=== PATIENT | female | born 1975 | race American Indian/Alaskan Native ===

== ENCOUNTER 2019-06-12 11:55 | Emergency (ER) | payer BC ==
[2019-06-12 12:04] VITALS: BP 136/95
--- NOTE | 2019-06-12 12:05 | Event Note ---
ED Screening Note Date of service: 06/12/19 Time: 12:02 ED Screening Note: This is a 43 y.o. F. that presents to the ER with lower abdominal pain for 2 months. + LLQ pain, n/v, and constipation Patient reports pain as throbbing pain on LLQ worse with movement. LMP 05/29/2019 This initial assessment/diagnostic orders/clinical plan/treatment(s) is/are subject to change based on patients health status, clinical progression and re- assessment by fellow clinical providers in the ED. Further treatment and workup at subsequent clinical providers discretion. Patient/guardian urged not to elope from the ED as their condition may be serious if not clinically assessed and managed. Initial orders include: Labs and CT of abdomen pelvis
[2019-06-12 12:46] LABS: Bilirubin,Urine NEG (Negative); Blood,Urine NEG (Negative); Color,Urine Straw (Yellow); Protein,Urine <15 mg/dL mg/dL (Negative); Urobilinogen,Urine < 2.0 mg/dL (<2.0); WBC,Urine < 1.0 /HPF (0.0-6.0)
[2019-06-12 13:15] LABS: Basophils % (Auto) 0.6 % (0.0-1.8); Eosinophils # (Auto) 0.1 K/mm3 (0.0-0.4); Eosinophils % (Auto) 1.4 % (0.0-4.3); Hematocrit 36.4 % (30.3-42.9); Hemoglobin 11.7 gm/dl (10.1-14.3); Lymphocytes % (Auto) 20.5 % (13.4-35.0); Mean Corpuscular HGB Conc 32 % (30-34); Mean Corpuscular Volume 84 fl (79-97); Monocytes # (Auto) 0.4 K/mm3 (0.0-0.8); Monocytes % (Auto) 7.8 % (0.0-7.3); Platelet Count 309 K/mm3 (140-440); Red Blood Count 4.36 M/mm3 (3.65-5.03)
[2019-06-12 13:17] LABS: Red Cell Distribution Width 21.5 % (13.2-15.2)
[2019-06-12 13:25] LABS: Alanine Aminotransferase 6 units/L (7-56); Albumin 4.4 g/dL (3.9-5); BUN/Creatinine Ratio 10; Blood Urea Nitrogen 6 mg/dL (7-17); Calcium 9.7 mg/dL (8.4-10.2); Hemolysis Index 0
--- NOTE | 2019-06-12 14:36 | Emergency Department Report ---
ED Abdominal Pain HPI - General Chief Complaint: Abdominal Pain Stated Complaint: SEVERE ABD PAIN Time Seen by Provider: 06/12/19 12:02 Source: patient Mode of arrival: Ambulatory Limitations: No Limitations - History of Present Illness Initial Comments: Patient is 43 years old female with no significant past medical history. Patient presented to the ER complaining of left lower quadrant pain for one week. Patient stated that pain increases with movement. Pain is sharp in nature with no radiation. Patient denied any fever, chills, nausea or vomiting. No diarrhea or constipation. Patient also denied any vaginal discharge or vaginal bleeding. MD Complaint: abdominal pain -: week(s) Location: [facility] Radiation: none Migration to: no migration Severity: moderate - Related Data Allergies Allergy/AdvReac Type Severity Reaction Status Date / Time No Known Allergies Allergy Verified 06/12/19 11:58 ED Review of Systems ROS: Stated complaint: SEVERE ABD PAIN Other details as noted in HPI Comment: All other systems reviewed and negative Constitutional: denies: chills, fever Respiratory: denies: cough, shortness of breath, SOB with exertion, SOB at rest, wheezing Cardiovascular: denies: chest pain, palpitations Gastrointestinal: abdominal pain. denies: nausea, vomiting, diarrhea, constipation, hematemesis, melena, hematochezia Genitourinary: denies: urgency, dysuria, frequency, hematuria, discharge Musculoskeletal: denies: back pain Neurological: denies: headache, weakness, numbness, paresthesias, confusion, abnormal gait ED Past Medical Hx - Past Medical History Previous Medical History?: No - Surgical History Past Surgical History?: No - Social History Smoking Status: Never Smoker Substance Use Type: None ED Physical Exam - General Limitations: No Limitations General appearance: alert, in no apparent distress - Head Head exam: Present: atraumatic, normocephalic, normal inspection - Eye Eye exam: Present: normal appearance, PERRL - ENT ENT exam: Present: normal exam, normal orophraynx, mucous membranes moist - Neck Neck exam: Present: normal inspection, full ROM. Absent: tenderness, meningismus, lymphadenopathy, thyromegaly - Respiratory Respiratory exam: Present: normal lung sounds bilaterally - Cardiovascular Cardiovascular Exam: Present: regular rate, normal rhythm, normal heart sounds - GI/Abdominal GI/Abdominal exam: Present: soft, normal bowel sounds. Absent: distended, tenderness, guarding, rebound, rigid, organomegaly, mass, bruit, pulsatile mass, hernia - Extremities Exam Extremities exam: Present: normal inspection, full ROM, normal capillary refill. Absent: tenderness, pedal edema, joint swelling, calf tenderness - Back Exam Back exam: Present: normal inspection, full ROM. Absent: CVA tenderness (R), CVA tenderness (L), muscle spasm, paraspinal tenderness, vertebral tenderness - Neurological Exam Neurological exam: Present: alert, oriented X3, CN II-XII intact, normal gait, reflexes normal - Psychiatric Psychiatric exam: Present: normal mood - Skin Skin exam: Present: warm, intact, normal color ED Course Vital Signs 06/12/19 12:02 Temperature 98.6 F Pulse Rate 106 H Respiratory 16 Rate Blood Pressure 136/95 [Left] O2 Sat by Pulse 100 Oximetry ED Medical Decision Making - Lab Data Result diagrams: 06/12/19 12:14 06/12/19 07:14 - Radiology Data Radiology results: report reviewed - Medical Decision Making Patient is 43 years old female with no significant past medical history. Patient presented to the ER complaining of left lower quadrant pain for one week. Patient stated that pain increases with movement. Pain is sharp in nature with no radiation. Patient denied any fever, chills, nausea or vomiting. No diarrhea or constipation. Patient also denied any vaginal discharge or vaginal bleeding. Labs reviewed that is unremarkable. Patient's CT abdomen and pelvis showed a 5 cm cecal mass with 2 lesions in the liver concerning for cecal carcinoma with metastasis to the liver. Patient informed about the CT scan finding and the need to follow-up with GI and surgeon as soon as possible. Patient does not meet any criteria for hospital admission. Patient denying any nausea or vomiting. No evidence of bowel obstruction on the CAT scan. Patient given Dia Miranda and Dr Diaz to follow-up with. She given a prescription for tramadol and Zofran. Patient also advised to return to the ER if symptoms are not improved or if she develop any new symptoms. Critical care attestation.: If time is entered above; I have spent that time in minutes in the direct care of this critically ill patient, excluding procedure time. ED Disposition Clinical Impression: Abdominal pain, Colon cancer Disposition: TO HOME OR SELFCARE Is pt being admited?: No Condition: Stable Instructions: Colorectal Cancer (ED), Abdominal Pain (ED) Referrals: [facility] [Provider Group] - 3-5 Days DOMINIC DIAZ MD [Staff Physician] - 3-5 Days
--- NOTE | 2019-06-12 14:52 | Cat Scan Report ---
CT of the abdomen and pelvis with contrast INDICATION: Left lower quadrant pain COMPARISON: None FINDINGS: The lung bases are clear. A 1 cm low density in the dome of the liver appears to be a cyst and benign. However, in the inferior right hepatic lobe there is a heterogeneous, mixed attenuation 5 .4 x 5.2 cm mass. Slightly more anterior and inferior again in the lower right hepatic lobe there is a second mass measuring 5.5 x 5.2 cm. These of the appearance of malignancy and are likely metastases . The liver does not appear cirrhotic. The spleen, pancreas, adrenal glands and kidneys all appear no rmal with no primary or metastatic neoplasm in these areas. No definite gallbladder or biliary tree a bnormality. No fluid or adenopathy in the upper abdomen. CT of the pelvis however shows an enhancing, irregular mass in the region of the cecum measuring appr oximately 3.8 x 3.6 cm. This is consistent with primary colon carcinoma. no bowel obstruction. The ap pendix is seen and is normal. Several large necrotic lymph nodes are seen in this area measuring up t o 2.4 cm in diameter. No uterine or adnexal masses with follicular cysts seen in the ovaries. There i s minimal free pelvic fluid. No inguinal adenopathy. There is no diverticulosis or diverticulitis wit h no left lower quadrant abnormality. 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 No left lower quadrant a bnormality. Automated exposure control was utilized to diminish radiation dose. Signer Name: Elmer Guerra MD Signed: 06/12/2019 2:47 PM Workstation Name: [id number]
== END 2019-06-12 15:35 | disposition home or self-care (01) ==
LOC: ED 11:55
DX: C18.9 Malignant neoplasm of colon, unspecified (principal)
CPT/HCPCS: 36415; 74177; 80053; 81001; 83690; 84703; 85025; 99284; Q9967

== ENCOUNTER 2021-03-06 01:31 | Emergency (ER) | payer BC ==
[2021-03-06 02:32] LABS: Hematocrit 34.8 % (30.3-42.9); Hemoglobin 11.4 gm/dl (10.1-14.3); Mean Corpuscular HGB Conc 33 % (30-34); Mean Corpuscular Volume 77 fl (79-97); Platelet Count 228 K/mm3 (140-440)
[2021-03-06 02:34] LABS: Red Cell Distribution Width 24.6 % (13.2-15.2)
--- NOTE | 2021-03-06 02:53 | XRay Report ---
XR chest routine 2V INDICATION / CLINICAL INFORMATION: Chest Pain. COMPARISON: None available. FINDINGS: SUPPORT DEVICES: Left chest wall port catheter tip terminates over the cavoatrial junction. HEART /PULMONARY VASCULATURE: No significant abnormality. LUNGS / PLEURA: No significant pulmonary or pleural abnormality. No pneumothorax. ADDITIONAL FINDINGS: No significant additional findings. IMPRESSION: 1. No acute findings. Signer Name: Elmer Dutta MD Signed: 03/06/2021 2:48 AM Workstation Name: [id number]
[2021-03-06 03:07] LABS: Anisocytosis 2+; Total Cells Counted 100
[2021-03-06 03:08] LABS: Hypochromasia 1+; Schistocytes Few
[2021-03-06 03:54] LABS: Blood Urea Nitrogen 12 mg/dL (7-17); Calcium 9.5 mg/dL (8.4-10.2); Hemolysis Index 0
[2021-03-06 03:55] LABS: BUN/Creatinine Ratio 20
--- NOTE | 2021-03-06 04:41 | Cat Scan Report ---
CTA CHEST WITH CONTRAST INDICATION / CLINICAL INFORMATION: Elevated D-dimer / Hx of stage-4 colon cancer, pleuritic chest bela n. TECHNIQUE: Axial CT images were obtained through the chest after injection of IV contrast. [address] P and/or 3D reconstructions were produced. All CT scans at this location are performed using CT dose reduction for ALARA by means of automated exposure control. COMPARISON: CT of the abdomen and pelvis from 06/12/2019. FINDINGS: PULMONARY ARTERIES: No central or segmental pulmonary embolus. THORACIC AORTA: No significant abnormality. HEART: No significant abnormality. ADENOPATHY: No significant adenopathy. LUNGS/PLEURA: No acute airspace disease. No suspicious pulmonary nodules. No pleural effusion. No pne umothorax. ADDITIONAL FINDINGS: None. UPPER ABDOMEN: Multiple heterogeneous hepatic lesions, largest located within the right hepatic lobe measuring up to 10.3 cm. This is increased from prior study in 2019. Additional hepatic cyst is prese nt. There is retroperitoneal lymphadenopathy, measuring up to 2.9 cm in short axis in the left periao rtic region (series 2 image 127). SKELETAL STRUCTURES: No significant osseous abnormality. IMPRESSION: 1. No acute findings in the chest. No evidence of pulmonary embolus. 2. Worsening hepatic metastatic disease and increased retroperitoneal lymphadenopathy, compared to pr ior CT from 2019. Signer Name: Elmer Dutta MD Signed: 03/06/2021 4:37 AM Workstation Name: [id number]
--- NOTE | 2021-03-06 04:59 | Emergency Department Report ---
ED Chest Pain HPI - General Chief Complaint: Chest Pain Stated Complaint: HEART ATTACK SX Time Seen by Provider: 03/06/21 03:14 Source: patient Mode of arrival: Ambulatory Limitations: No Limitations - History of Present Illness Initial Comments: Patient is a 45-year-old F Stateless female with past medical history of stage IV colon cancer with metastases to the liver and retroperitoneal area currently on chemotherapy who is presenting with chest pain. Patient states 8 hours prior to arrival she started having pain in the right chest radiating to the right side of her neck. Pain is worse with breathing and with lying flat. She denies any exertional component cough cold congestion fevers or chills at this time. - Related Data Previous Rx's Medication Instructions Recorded Last Taken Type Ondansetron [Zofran Odt] 4 mg PO Q8HR PRN #14 tab.rapdis 06/12/19 Unknown Rx traMADoL [Ultram 50 MG tab] 50 mg PO Q4HR PRN #14 tablet 06/12/19 Unknown Rx HYDROcodone/APAP 5-325 [[place] 1 each PO Q6HR PRN #14 tablet 03/06/21 Unknown Rx 5/325] Ketorolac [Toradol] 10 mg PO Q6H PRN #12 tablet 03/06/21 Unknown Rx Allergies Allergy/AdvReac Type Severity Reaction Status Date / Time No Known Allergies Allergy Verified 06/12/19 11:58 Heart Score - HEART Score History: Slightly suspicious EKG: Normal Age: < 45 Risk factors: No known risk factors Troponin: < normal limit HEART Score: 0 - EKG Read Time Time EKG Completed: 01:35 EKG Read Time: 01:38 ED Review of Systems ROS: Stated complaint: HEART ATTACK SX Other details as noted in HPI Comment: All other systems reviewed and negative ED Past Medical Hx - Past Medical History Previous Medical History?: Yes Additional medical history: Stage 4 colon cancer - Surgical History Past Surgical History?: No - Social History Smoking Status: Never Smoker Substance Use Type: None - Medications Home Medications: Home Medications Medication Instructions Recorded Confirmed Last Taken Type Ondansetron [Zofran Odt] 4 mg PO Q8HR PRN #14 tab.rapdis 06/12/19 Unknown Rx traMADoL [Ultram 50 MG tab] 50 mg PO Q4HR PRN #14 tablet 06/12/19 Unknown Rx HYDROcodone/APAP 5-325 [[place] 1 each PO Q6HR PRN #14 tablet 03/06/21 Unknown Rx 5/325] Ketorolac [Toradol] 10 mg PO Q6H PRN #12 tablet 03/06/21 Unknown Rx ED Physical Exam - General Limitations: No Limitations General appearance: alert, in no apparent distress - Head Head exam: Present: atraumatic, normocephalic - Eye Eye exam: Present: normal appearance - ENT ENT exam: Present: mucous membranes moist - Neck Neck exam: Present: normal inspection - Respiratory Respiratory exam: Present: normal lung sounds bilaterally. Absent: respiratory distress, wheezes, rales, rhonchi - Cardiovascular Cardiovascular Exam: Present: regular rate, normal rhythm, normal heart sounds. Absent: systolic murmur, diastolic murmur, rubs, gallop - GI/Abdominal GI/Abdominal exam: Present: soft, normal bowel sounds. Absent: distended, tenderness, guarding, rebound, rigid - Extremities Exam Extremities exam: Present: normal inspection - Back Exam Back exam: Present: normal inspection - Neurological Exam Neurological exam: Present: alert, oriented X3 - Psychiatric Psychiatric exam: Present: normal affect, normal mood - Skin Skin exam: Present: warm, dry, intact, normal color. Absent: rash ED Course Vital Signs 03/06/21 03/06/21 03/06/21 01:40 01:45 01:51 Temperature 98.4 F 98.4 F Pulse Rate 89 73 91 H Respiratory 18 16 Rate Blood Pressure 134/96 136/86 O2 Sat by Pulse 100 99 Oximetry 03/06/21 03/06/21 03/06/21 03:41 03:45 04:00 Temperature Pulse Rate 108 H 86 Respiratory 19 22 Rate Blood Pressure 139/109 136/99 O2 Sat by Pulse 99 99 99 Oximetry 03/06/21 03/06/21 03/06/21 04:22 04:30 04:46 Temperature Pulse Rate Respiratory Rate Blood Pressure O2 Sat by Pulse 100 100 100 Oximetry ED Medical Decision Making - Lab Data Result diagrams: 03/06/21 01:53 03/06/21 03:23 Lab Results 03/06/21 03/06/21 03/06/21 Range/Units 01:53 01:53 03:23 WBC 6.3 (4.5-11.0) K/mm3 RBC 4.50 (3.65-5.03) M/mm3 Hgb 11.4 (10.1-14.3) gm/dl Hct 34.8 (30.3-42.9) % MCV 77 L (79-97) fl MCH 25 L (28-32) pg MCHC 33 (30-34) % RDW 24.6 H (13.2-15.2) % Plt Count 228 (140-440) K/mm3 Add Manual Diff Complete Total Counted 100 Seg Neuts % (Manual) 73.0 H (40.0-70.0) % Lymphocytes % (Manual) 17.0 (13.4-35.0) % Monocytes % (Manual) 8.0 H (0.0-7.3) % Eosinophils % (Manual) 1.0 (0.0-4.3) % Basophils % (Manual) 1.0 (0.0-1.8) % Nucleated RBC % Not Reportable Seg Neutrophils # Man 4.6 (1.8-7.7) K/mm3 Band Neutrophils # 0.0 K/mm3 Lymphocytes # (Manual) 1.1 L (1.2-5.4) K/mm3 Abs React Lymphs (Man) 0.0 K/mm3 Monocytes # (Manual) 0.5 (0.0-0.8) K/mm3 Eosinophils # (Manual) 0.1 (0.0-0.4) K/mm3 Basophils # (Manual) 0.1 (0.0-0.1) K/mm3 Metamyelocytes # 0.0 K/mm3 Myelocytes # 0.0 K/mm3 Promyelocytes # 0.0 K/mm3 Blast Cells # 0.0 K/mm3 WBC Morphology Not Reportable Hypersegmented Neuts Not Reportable Hyposegmented Neuts Not Reportable Hypogranular Neuts Not Reportable Smudge Cells Not Reportable Toxic Granulation Not Reportable Toxic Vacuolation Not Reportable Dohle Bodies Not Reportable Pelger-Huet Anomaly Not Reportable Vitaliy Rods Not Reportable Platelet Estimate Not Reportable Clumped Platelets Not Reportable Plt Clumps, EDTA Not Reportable Large Platelets Not Reportable Giant Platelets Not Reportable Platelet Satelliting Not Reportable Plt Morphology Comment Not Reportable RBC Morphology Not Reportable Dimorphic RBCs Not Reportable Polychromasia Not Reportable Hypochromasia 1+ Poikilocytosis Not Reportable Anisocytosis 2+ Microcytosis Few Macrocytosis Not Reportable Spherocytes Not Reportable Pappenheimer Bodies Not Reportable Sickle Cells Not Reportable Target Cells Not Reportable Tear Drop Cells Not Reportable Ovalocytes Not Reportable Helmet Cells Not Reportable Jeff-Kremlin Bodies Not Reportable Stowe Rings Not Reportable Fowler Cells Not Reportable Bite Cells Not Reportable Crenated Cell Not Reportable Elliptocytes Not Reportable Acanthocytes (Spur) Not Reportable Rouleaux Not Reportable Hemoglobin C Crystals Not Reportable Schistocytes Few Malaria parasites Not Reportable Angelo Bodies Not Reportable Hem Pathologist Commnt No D-Dimer 839.27 H (0-234) ng/mlDDU Sodium 135 L (137-145) mmol/L Potassium 4.0 (3.6-5.0) mmol/L Chloride 99.0 (98-107) mmol/L Carbon Dioxide 22 (22-30) mmol/L Anion Gap 18 mmol/L BUN 12 (7-17) mg/dL Creatinine 0.6 (0.6-1.2) mg/dL Estimated GFR > 60 ml/min BUN/Creatinine Ratio 20 % Glucose 96 (65-100) mg/dL Calcium 9.5 (8.4-10.2) mg/dL Troponin T < 0.010 (0.00-0.029) ng/mL - EKG Data -: EKG Interpreted by Sd EKG shows normal: sinus rhythm, axis, intervals, QRS complexes, ST-T waves Rate: normal (rate 84) - EKG Data Interpretation: normal EKG (@0138) - Radiology Data [facility] [address] [place] [address] Cat Scan Report Signed Patient: DELILAH MONTES MR#: [id number] : 1975 Acct:[id number] Age/Sex: 45 / F ADM Date: 03/06/21 Loc: ED Attending Dr: Ordering Physician: YOHANA CHIN MD Date of Service: 03/06/21 Procedure(s): CT angio chest Accession Number(s): [id number] cc: YOHANA CHIN MD CTA CHEST WITH CONTRAST INDICATION / CLINICAL INFORMATION: Elevated D-dimer / Hx of stage-4 colon cancer, pleuritic chest pain. TECHNIQUE: Axial CT images were obtained through the chest after injection of IV contrast. 3 plane MIP and/or 3D reconstructions were produced. All CT scans at this location are performed using CT dose reduction for ALARA by means of automated exposure control. COMPARISON: CT of the abdomen and pelvis from 06/12/2019. FINDINGS: PULMONARY ARTERIES: No central or segmental pulmonary embolus. THORACIC AORTA: No significant abnormality. HEART: No significant abnormality. ADENOPATHY: No significant adenopathy. LUNGS/PLEURA: No acute airspace disease. No suspicious pulmonary nodules. No pleural effusion. No pneumothorax. ADDITIONAL FINDINGS: None. UPPER ABDOMEN: Multiple heterogeneous hepatic lesions, largest located within the right hepatic lobe measuring up to 10.3 cm. This is increased from prior study in 2019. Add itional hepatic cyst is present. There is retroperitoneal lymphadenopathy, measuring up to 2.9 cm in short axis in the left periaortic region (series 2 image 127). SKELETAL STRUCTURES: No significant osseous abnormality. IMPRESSION: 1. No acute findings in the chest. No evidence of pulmonary embolus. 2. Worsening hepatic metastatic disease and increased retroperitoneal lymphadenopathy, compared to prior CT from 2019. Signer Name: Elmer Dutta MD Signed: 03/06/2021 4:37 AM Workstation Name: [id number] - Medical Decision Making Patient is a 45-year-old F Stateless female who is presenting with some pleuritic chest discomfort. CT angio negative for pulmonary embolus. Troponin is negative. Patient likely with pleurisy. Given medication for symptomatic relief will be discharged home. Critical care attestation.: If time is entered above; I have spent that time in minutes in the direct care of this critically ill patient, excluding procedure time. ED Disposition Clinical Impression: Pleurisy Disposition: DC-01 TO HOME OR SELFCARE Is pt being admited?: No Does the pt Need Aspirin: No Condition: Stable Instructions: Pleurisy Referrals: PRIMARY CAREMD [Primary Care Provider] - 3-5 Days Time of Disposition: 05:00
[2021-03-06 06:56] VITALS: BP 136/75
--- NOTE | 2021-03-07 09:41 | Electrocardiograph Report ---
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
== END 2021-03-06 06:55 | disposition home or self-care (01) ==
LOC: ED 01:31
DX: R09.1 Pleurisy (principal); Z79.899 Other long term (current) drug therapy
CPT/HCPCS: 36415; 71046; 71275; 80048; 84484; 85007; 85025; 85379; 93005; 99284; Q9967